=== PATIENT | female | born 1950 | race Caucasian/White ===

== ENCOUNTER → 2017-09-01 | Outpatient (CLI) | payer OTHER, MEDICAID ==
[~2017-09-01] VITALS: Ht 157.5 cm; Wt 80.7 kg
[~2017-09-01] MED LIST: ASPIR 8181 MG PO; BUSPIRONE HCL10 MG PO; CYMBALTA60 MG PO; MIRALAX17 GM PO; NEURONTIN 300300 M1 PO; SEROQUEL 25 MG25 M1 PO; SEROQUEL 50 MG50 MG PO; SYNTHROID50 MCG PO; TOPROL XL25 MG PO; TRAMADOL 50 MG50 MG PO; UNICOMPLEX M TA1 TA1 PO; VENTOLIN HFA 1818 GM INH; VYTORIN 10-401 EACH PO; XANAX 0.25 MG0.25 MG PO
--- NOTE | ~2017-09-01 | P ---
[facility] [place] [address] PROCEDURE REPORT Name: RE LÓPEZ Room #: REG [facility]#: [id number] Admission: 09/01/17 Attend Phys: Ryan Polanco MD Discharge: Date of : 52 Report #: [id number] THIS REPORT FOR: //name// CC: SREEKANTH Ornelas PREOPERATIVE DIAGNOSIS: Supraventricular tachycardia. POSTOPERATIVE DIAGNOSIS: Typical atrioventricular josep reentrant tachycardia. PROCEDURES PERFORMED: 1. SVT ablation, CPT code 97760. 2. EP left atrial pacing and recording, CPT code 12155. 3. Program stimulation and pacing after IV, CPT code 47966. 4. 3D mapping EP, CPT code 28284. HISTORY OF PRESENT ILLNESS: The patient is a 67-year-old female with a long-standing history of SVT that has failed antiarrhythmic drugs and she is here for an ablation. ANESTHESIA: The patient underwent MAC anesthesia with no anesthesia-related complications. DESCRIPTION OF PROCEDURE: The patient underwent informed consent. We discussed the details of the procedure including the risks, which include but not limited to bleeding, vascular damage, cardiac perforation, stroke, ID as well as damage to the pamunkey conduction system requiring permanent pacemaker. The patient understood these risks and is willing to proceed. The patient was brought to the EP laboratory in a fasting and sedated state, prepped and draped in a sterile fashion. I injected lidocaine to the bilateral groin regions and obtained access to the right femoral vein x 3 and the left femoral vein x 1. I then placed three short sheaths in the right and left femoral veins. Under fluoroscopy, I placed 3 quadripolar catheters at the HRA, His, and RV positions and a decapolar catheter easily in the coronary sinus. At baseline, the patient was in sinus rhythm with a sinus cycle length of 630 milliseconds, AZ interval 170 milliseconds, QRS duration 85 milliseconds and a QT interval 366 milliseconds, AH interval was 67 milliseconds and the HV interval was 45 milliseconds. Next, atrial burst pacing was performed and there was a short run of SVT that looked like AVNRT and it terminated spontaneously with . Next, I continued pacing and then transition to pacing on the coronary sinus and from the coronary sinus catheter, I induced SVT. The SVT cycle length was 350 milliseconds with the septal VA time of 35 milliseconds. Ventricular [facility] [address] [place] [address] PROCEDURE REPORT Name: RENERE [id number] Admission: 09/01/17 Attend Phys: Ryan Polanco MD Discharge: Date of : 52 Report #: [id number] entrainment was performed and a VAHV response was obtained, consistent with typical AV josep reentrant tachycardia. AV block was noted to be less than 350 milliseconds. Atrial ERP was noted at be 280 milliseconds at a [address] cycle length. VA block was noted at 280 milliseconds and VA ERP was 240 milliseconds at a [address] cycle length. VA conduction was both midline and decremental. The SVT was very easily inducible with any atrial burst pacing and with single atrial extrastimuli. In fact, the SVT was very difficult to terminate once you would go into it. I have to atrially pace it at about 250 milliseconds to terminate it. As such, a diagnosis of typical AV josep reentrant tachycardia was made. 3D MAPPING AND ABLATION: Next, I removed by HRA catheter and exchanged the short sheath for a SR0 sheath and a 4-mm [employer] Hernandez ablation catheter was placed at the level of the His bundle. Next, a 3D geometry with specific emphasis of the His bundle slow pathway region and coronary sinus ostium was created. There was nice slow pathway potentials and our first ablation lesion resulted in nice slow junctionals. I performed a total of 4 ablation lesions, all with very nice slow junctional rhythms and there was never compromise to AV josep conduction. POST-ABLATION FINDINGS: Post-ablation, the patient was in sinus rhythm. AV block was noted at 320 milliseconds. Atrial ERP was noted at 240 milliseconds at [address] cycle length. VA block was noted at 310 milliseconds. Isoproterenol infusion was started at 1 mcg per minute and AV block was noted at 260 milliseconds. Atrial ERP was noted at 200 milliseconds at a [address] cycle length. There was rare single AV josep echo noted. The isoproterenol was discontinued and I continued performing pacing. AV block was noted at 310 milliseconds. Atrial ERP was noted at 230 milliseconds at a [address] cycle length. There was no inducible SVT. Post-ablation, the patient was in sinus rhythm with sinus cycle length of 540 milliseconds, AZ interval 155 milliseconds, QRS duration 85 milliseconds, QT interval 340 milliseconds, AH interval 90 milliseconds and HV interval of 40 milliseconds. As such, the procedure was concluded. Catheters and sheaths were pulled. Hemostasis obtained and the patient awoke neurologically hemodynamically intact, with no complications and no significant bleeding. CONCLUSIONS: 1. Successful ablation of typical atrioventricular josep reentrant tachycardia. 2. Normal SA josep function. 3. Normal AV josep function. [facility] [address] [place] [address] PROCEDURE REPORT Name: RE LÓPEZ Room #: REG CLI [facility]#: [id number] Admission: 09/01/17 Attend Phys: Ryan Polanco MD Discharge: Date of : 52 Report #: [id number] 4. Normal His-Purkinje function. 5. No other inducible arrhythmias on or off isoproterenol. By: [id number] Ryan Polanco MD /nt
[2017-09-01 07:11] VITALS: BP 154/88
[2017-09-01 07:12] LABS: ABSOLUTE NEUTROPHILS 2.8 thou/uL (1.4-8.2); BASOPHILS 1.3 % (0.0-2.0); EOSINOPHILS 2.9 % (0.0-3.0); HEMATOCRIT 41.9 % (37.0-47.0); HEMOGLOBIN 14.2 gm/dL (12.0-15.0); MCHC 33.8 g/dL (28.0-37.0); MCV 94.8 fL (80.0-100.0); MONOCYTES 8.3 % (1.0-8.0); PLATELET COUNT 280 thou/uL (150-400); POLYS 41.5 % (36.0-66.0); RBC 4.42 mil/uL (4.20-5.00); WBC 6.8 thou/uL (4.0-11.0)
[2017-09-01 07:26] LABS: CALCIUM 9.5 mg/dL (8.5-10.1); POTASSIUM 3.6 mmol/L (3.5-5.1)
[2017-09-01 07:28] LABS: APTT 30.8 Seconds (24.5-32.8)
== END | disposition home or self-care (01) ==
LOC: CATH 06:31
PROVIDERS: Internal Medicine Cardiovascular Disease
DX: I47.1 Supraventricular tachycardia (principal); I10 Essential (primary) hypertension; E78.5 Hyperlipidemia, unspecified; J44.9 Chronic obstructive pulmonary disease, unspecified; K21.9 Gastro-esophageal reflux disease without esophagitis; F41.9 Anxiety disorder, unspecified; F31.9 Bipolar disorder, unspecified; E66.09 Other obesity due to excess calories; Z79.82 Long term (current) use of aspirin; Z79.899 Other long term (current) drug therapy; Z91.040 Latex allergy status
CPT/HCPCS: 62110; 62900; 70005